=== PATIENT | male | born 1950 | race Caucasian/White ===

== ENCOUNTER 2023-10-04 15:13 | Emergency (ER) | payer OTHER, SELFPAY ==
--- NOTE | 2023-10-04 15:22 | ED.TRAUMA ---
HPI - Trauma General Date Seen: 10/04/23 Chief Complaint: Fall/Minor Trauma Stated Complaint: Fell 8 feet, head lac Time Seen by Provider: 10/04/23 15:21 Source: patient, family ( present) and RN notes reviewed Mode of arrival: ambulatory Limitations: no limitations History of Present Illness HPI narrative: Patient is a 73-year-old male ambulatory into the ED for which a trauma team activation was called internally. He walked in of his own accord, was accompanied by his after he fell through the ceiling in his garage. He fell through the ceiling in the garage on the landing of the steps, and then fell sideways hitting the top of his head. He is not any blood thinners, no loss of consciousness. Obviously this was a height. Prior to going through the ceiling, he was hanging on with his arms in the rafters. He originally had a sense of some bilateral shoulder soreness from hanging but that is going away as time goes on. He notes no significant headache, no visual changes, no difficulty breathing, no chest or chest wall pain, no abdominal pain, no numbness tingling or weakness anywhere, no visual changes. He denies any neck or back pain. No mood altering substance use. He describes some pain over the upper portion of both of his shoulders in the muscular area, pain really is alleviating for him as time goes on. complaint: fall and injury Related Data Home Medications Medication Instructions Recorded Confirmed No Known Home Medications 10/04/23 10/04/23 Allergies Allergy/AdvReac Type Severity Reaction Status Date / Time No Known Drug Allergies Allergy Verified 10/04/23 15:31 Review of Systems Status of ROS: Reports: 6 or more systems reviewed and unremarkable except as noted in History and below [facility] Social History Smoking Status: Unknown if ever smoked Do you use any of these nicotine containing products: None Second hand tobacco smoke exposure: No How often do you have a drink containing alcohol: never AUDIT-C Alcohol total score: 0 service: No Exam Const: Vital Signs, click to edit/add: Vital Signs - 24 hr 10/04/23 15:24 Temperature 96.2 F L Pulse Rate [Pulse Oximeter] 82 Respiratory Rate 18 Blood Pressure [Ri ght Upper Arm] 151/91 H Pulse Oximetry 97 Oxygen Delivery Me thod Room Air Patient's initial survey reveals a patient with a cloth on the top of his head, this is removed, see about a probable 10 cm laceration with no active bleeding. We have a patient that is lucid, alert and interactive, hemodynamically stable. GCS is 15/15. Moving directly on the secondary survey given his stability, we have again alert patient is sitting up. His scalp wound is not actively bleeding but is going to require repair. He has no midline tenderness over his neck down into his back anywhere. No visible traumatic change. Neck is fully mobile without any pain. No drainage from his ears, no external ear trauma noted. Face is atraumatic, pupils equal round reactive, sclera clear, symmetrical facial function. Feels like his jaw open and closes without any pain, dentition including normally, no oral pharyngeal traumatic change noted. Neck without any palpable masses, nontender, no thyromegaly masses or nodules. Lungs are clear, good air entry, no wheezing or crackles. CV regular rate and rhythm, no murmur, normal S1, normal S2 no S3 or S4 noted. He has no appreciable tenderness over the shoulders, the interscapular area over the scapulas. He is able to fully mobilize his shoulders, glenohumeral joints intact, no pain with full arc of abduction, upper and lower extremities showing full strength, full range of motion, no traumatic change, no tenderness anywhere. He has no palpable chest wall tenderness, abdomen is soft, nontender, nondistended. He has no pain with ambulation. Documenting provider has reviewed patient's vital signs: yes Course Course ED Course: Patient will have a two view chest x-ray, head CT and cervical spine CT. We will check to see if his tetanus is updated. When he is back from imaging, will prepare to repair his scalp wound. Reevaluation(s) Time of Reevaluation #1: 16:49 Reevaluation #1: Anesthetize patient's scalp wound with 10 mL of 1% lidocaine with epinephrine. Will have staff irrigate the wound. They had gently cleaned superficially and clean the scalp of the insulation. One staff is irrigated the wound again, will use beth for wound closure. Have reviewed with them that his head CT and cervical spine CT is negative for traumatic change. He did get some Tylenol, is feeling some muscle soreness in his upper shoulders, muscular distribution. Still awaiting chest x-ray to be read. Time of Reevaluation #2: 17:08 Reevaluation #2: Patient's scalp wound was closed with beth, wound was roughly 9 cm in length, 19 beth were placed with wound closure. He tolerated this well, there were no immediate complications. Will have nursing staff put a dressing on, will update his tetanus with an Adacel. There is no documentation in [place] immunization website of prior tetanus. Patient was able to lie back in lie flat for his scalp to be stapled, had no problems with this positioning. Time of Reevaluation #3: 17:59 Reevaluation #3: Reviewed with patient and his that the only finding on his chest x-ray was a potential compression fraction an L1. Patient again states he has absolutely no back pain. Did re-examine, no midline tenderness, no paraspinous tenderness. He states he has an old injury to his back. He will watch for symptoms that developing get re-evaluated. His Adacel is just being given. We discussed signs and symptoms of concussion. 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 Vital Signs Vital signs: Initial Vital Signs Temperature 96.2 F L 10/04/23 15:24 Temperature Source Temporal Artery Scan 10/04/23 15:24 Pulse Rate 82 10/04/23 15:24 Respiratory Rate 18 10/04/23 15:24 Blood Pressure 151/91 H 10/04/23 15:24 Blood Pressure Mean 111 H 10/04/23 15:24 Blood Pressure Position Sitting 10/04/23 15:24 Pulse Oximetry 97 10/04/23 15:24 Oxygen Delivery Method Room Air 10/04/23 15:24 Vital Signs Temperature 96.2 F L 10/04/23 15:24 Pulse Rate 82 10/04/23 15:24 Respiratory Rate 18 10/04/23 15:24 Blood Pressure 151/91 H 10/04/23 15:24 Pulse Oximetry 97 10/04/23 15:24 Oxygen Delivery Method Room Air 10/04/23 15:24 Temperature 96.2 F L 10/04/23 15:24 Pulse Rate 82 10/04/23 15:24 Respiratory Rate 18 10/04/23 15:24 Blood Pressure 151/91 H 10/04/23 15:24 Pulse Oximetry 97 10/04/23 15:24 Oxygen Delivery Method Room Air 10/04/23 15:24 Medications Administered Medications: Discontinued Medications Generic Name Dose Route Start Last Admin Trade Name Nate PRN Reason Stop Dose Admin Acetaminophen 1,000 mg 10/04/23 16:43 10/04/23 16:40 Acetaminophen 500 Mg Tablet PO 10/04/23 16:44 1,000 mg ONCE ONE Administration MDM - Trauma Imaging Data CT scan - head: Attestation: I have reviewed the pertinent imaging results. Radiologist's impression: Patient: [facility] Facility:?[facility] Patient ID:?[id number] Site Patient ID:?[id number]. Site :?1950 Study:?CT Head TRAUMA CODE-10/04/2023 3:50:52 PM Ordering Physician:?Aleshia Breaux Final Report: INDICATION: Fall. TECHNIQUE: CT of the head without contrast. Coronal and sagittal reformats are included. COMPARISON: None. FINDINGS: No acute intracranial hemorrhage. No mass effect or midline shift. No hydrocephalus or extra-axial collections. White matter is within normal limits for age. No acute osseous abnormalities. Bilateral TMJ arthrosis. Mastoid air cells and paranasal sinuses are clear. Normal soft tissues. IMPRESSION: IMPRESSION: 1. No acute intracranial abnormalities. Please note that all CT scans at this facility use dose modulation, iterative reconstruction, and/or weight-based dosing when appropriate to reduce radiation dose to as low as reasonably achievable. Dictated by Ronald Goodrich MD @ 10/04/2023 4:32:39 PM (Electronic Signature) CT cervical spine: Attestation: I have reviewed the pertinent imaging results. Radiologist's impression: Patient: [facility] Facility:?[facility] Patient ID:?[id number] Site Patient ID:?[id number]. Site :?1950 Study:?CT Spine Cervical CODE TRAUMA-10/04/2023 3:50:26 PM Ordering Physician:?Aleshia Breaux Final Report: INDICATION: Fall. TECHNIQUE: CT of the cervical spine without contrast. Coronal and sagittal reformats are included. COMPARISON: None. FINDINGS: No acute fracture or traumatic malalignment of the cervical spine. Craniocervical junction alignment is maintained. Moderate disc height loss endplate remodeling at C2-3, C3-4, C4-5 and C5-6. Mild disc degeneration elsewhere. Shallow disc osteophyte complexes contribute to minimal to mild spinal canal stenosis most prominent at C4-5 and C5-6. 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 Imaged intracranial structures, cervical and paraspinous soft tissues are normal in appearance. The visualized pulmonary apices are clear. IMPRESSION: 1. No acute fracture or traumatic malalignment of the cervical spine. Please note that all CT scans at this facility use dose modulation, iterative reconstruction, and/or weight-based dosing when appropriate to reduce radiation dose to as low as reasonably achievable. Dictated by Ronald Goodrich MD @ 10/04/2023 4:36:44 PM (Electronic Signature) Chest x-ray: Attestation: I have reviewed the pertinent imaging results. Radiologist's impression: Patient: [facility] Facility:?[facility] Patient ID:?[id number] Site Patient ID:?[id number]. Site :?1950 Study:?XRay Chest 2 VIEW CODE TRAUMA-10/04/2023 3:51:10 PM Ordering Physician:Chantale Breaux Final Report: INDICATION: Trauma. TECHNIQUE: Chest 2 views. COMPARISON: None. FINDINGS: Cardiovascular and mediastinum: Heart size and vasculature are normal in caliber and appearance. Lungs and pleural spaces: Lungs are clear. No sign of infiltrate or mass. No sign of pleural effusion. No pneumothorax. Bones and soft tissues: No significant findings. IMPRESSION: No acute or significant findings. Dictated by Bishop Matute MD @ 10/04/2023 5:20:42 PM ----- ADDENDUM ----- Addendum: L1 compression fracture. Recommend correlation point tenderness. Dictated by Bishop Matute MD @ Oct 04 2023 5:23PM (Electronic Signature) Discharge Plan Discharge Clinical Impression: Fall, Laceration of scalp Patient Disposition: Home, Self-Care Condition: Stable Instructions: Laceration (ED) Additional Instructions: Need to follow up in clinic in about 10 days to assess the scalp laceration for suture removal. May shower daily, be careful to not disrupt the beth. Can use a dressing over the area daily, change twice daily as needed. Leave the current dressing on for tonight, can change in the morning. Use bacitracin twice a day to the suture line, this will help prevent crusting of the beth. Can use [id number] medicines that you normally would for pain management, follow bottle directions for dosing. If you start to develop headaches, lightheadedness, symptoms of concussion, do need to follow up in clinic and be re-evaluated. If you are concerned about concussion symptoms, would not recommend that you go up on ladders or be at any heights. Activity Level: Activity as Tolerated Prescriptions: No Action No Known Home Medications Follow Up/Referrals: Martin Contreras MD [Primary Care Provider] - Stand Alone Forms: [facility] [employer] Info Instructions
[2023-10-04 15:24] VITALS: BP 151/91; PULSE 82; RESP 18; TEMP 35.7; O2SAT 97; BMI 32.5
--- NOTE | 2023-10-04 15:24 | CRLHL7_ITS ---
For Patients: As a result of the Cures Act, medical imaging exams and procedure reports are released immediately into your electronic medical record. You may view this report before your referring provider. If you have questions, please contact your health care provider. INDICATION: Trauma. TECHNIQUE: Chest 2 views. COMPARISON: None. FINDINGS: Cardiovascular and mediastinum: Heart size and vasculature are normal in caliber and appearance. Lungs and pleural spaces: Lungs are clear. No sign of infiltrate or mass. No sign of pleural effusion. No pneumothorax. Bones and soft tissues: No significant findings. IMPRESSION: No acute or significant findings. Dictated by Bishop Matute MD @ 10/04/2023 5:20:42 PM (Electronically Signed)
--- NOTE | 2023-10-04 15:24 | CRLHL7_ITS ---
For Patients: As a result of the Century Cures Act, medical imaging exams and procedure reports are released immediately into your electronic medical record. You may view this report before your referring provider. If you have questions, please contact your health care provider. INDICATION: Fall. TECHNIQUE: CT of the cervical spine without contrast. Coronal and sagittal reformats are included. COMPARISON: None. FINDINGS: No acute fracture or traumatic malalignment of the cervical spine. Craniocervical junction alignment is maintained. Moderate disc height loss endplate remodeling at C2-3, C3-4, C4-5 and C5-6. Mild disc degeneration elsewhere. Shallow disc osteophyte complexes contribute to minimal to mild spinal canal stenosis most prominent at C4-5 and C5-6. 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 Imaged intracranial structures, cervical and paraspinous soft tissues are normal in appearance. The visualized pulmonary apices are clear. IMPRESSION: 1. No acute fracture or traumatic malalignment of the cervical spine. Please note that all CT scans at this facility use dose modulation, iterative reconstruction, and/or weight-based dosing when appropriate to reduce radiation dose to as low as reasonably achievable. Dictated by Ronald Goodrich MD @ 10/04/2023 4:36:44 PM (Electronically Signed)
--- NOTE | 2023-10-04 15:24 | CRLHL7_ITS ---
For Patients: As a result of the Century Cures Act, medical imaging exams and procedure reports are released immediately into your electronic medical record. You may view this report before your referring provider. If you have questions, please contact your health care provider. INDICATION: Fall. TECHNIQUE: CT of the head without contrast. Coronal and sagittal reformats are included. COMPARISON: None. FINDINGS: No acute intracranial hemorrhage. No mass effect or midline shift. No hydrocephalus or extra-axial collections. White matter is within normal limits for age. No acute osseous abnormalities. Bilateral TMJ arthrosis. Mastoid air cells and paranasal sinuses are clear. Normal soft tissues. IMPRESSION: IMPRESSION: 1. No acute intracranial abnormalities. Please note that all CT scans at this facility use dose modulation, iterative reconstruction, and/or weight-based dosing when appropriate to reduce radiation dose to as low as reasonably achievable. Dictated by Ronald Goodrich MD @ 10/04/2023 4:32:39 PM (Electronically Signed)
--- NOTE | 2023-10-04 15:49 | ED.NURSE ---
cleaned the wound with shurclens and bleeding is controlled. covered with a wet 4x4. pain rated at 3/10 scale no change with pain.
[2023-10-04] MEDS: ACETAMINOPHEN 500 MG TABLET 1000 MG PO (16:40)
[2023-10-04] MEDS: TETANUS/DIPHTH/PERTUSSIS 0.5 ML SYRINGE IM (18:00)
== END 2023-10-04 18:11 | disposition home or self-care (01) ==
PROVIDERS: Emergency Provider Family Medicine; PCP Family Medicine
DX: S01.01XA Laceration without foreign body of scalp, initial encounter (principal); W17.89XA Other fall from one level to another, initial encounter
CPT/HCPCS: 12004; 70450; 71046; 72125; 90471; 90715; 99284; 99285; 99291; A9270